=== PATIENT | female | born 1970 | race African-American/Black ===

== ENCOUNTER 2020-01-27 09:54 | Inpatient (IN) | payer OTHER ==
--- NOTE | 2020-01-27 10:08 | BHS.RME ---
Substance Use & Tx History - Substance Use History Methamphetamine Substance amount: 1 gram Frequency of use: Daily Substance route: Inhalation (ex: sniffing or snorting), Smoking Date of Last Use: 01/26/20 (started age 29) Synthetic Cannabinoid Substance amount: K2 - $20 Frequency of use: Daily Substance route: Smoking Date of Last Use: 01/26/20 (started age 45) MDMA Substance amount: 1 gram Frequency of use: Daily Substance route: Oral Date of Last Use: 01/26/20 ( Started age 29) Alcohol Substance amount: 2 beers 16 oz Frequency of use: Less than 3 times per week Substance route: Oral Date of Last Use: 01/26/20 (started age 13) Physical/Psych/Mental Status - Behavior General Behavior: Increased activity (restlessness, agitation) Eye Contact: Normal - Cooperativeness Cooperativeness: Cooperative - Thinking Thought Processes: Tight, Logical, Goal Directed - Physical Health Problems Is patient presently having any pain?: No Does patient presently have any injuries (include location): No Does patient currently have a fever: No Is patient : No
[2020-01-27 14:45] VITALS: BMI 20.5
--- OUTSIDE RECORDS SUMMARY | 2020-01-27 15:13 | XMS ---
:1970 Author Organization [facility] Support Name Relationship Address Phone UE Unavailable Unavailable Unavailable VY IZQUIERDO SISTER [address] [place] [address] Re-disclosure Warning The records that you are about to access may contain information from federally- assisted alcohol or drug abuse programs. If such information is present, then the following federally mandated warning applies: This information has been disclosed to you from records protected by federal confidentiality rules (42 CFR part 2). The federal rules prohibit you from making any further disclosure of this information unless further disclosure is expressly permitted by the written consent of the person to whom it pertains or as otherwise permitted by 42 CFR part 2. A general authorization for the release of medical or other information is NOT sufficient for this purpose. The Federal rules restrict any use of the information to criminally investigate or prosecute any alcohol or drug abuse patient.The records that you are about to access may contain highly sensitive health information, the redisclosure of which is protected by Article 27-F of the [facility] Public Health law. If you continue you may haveaccess to information: Regarding HIV / AIDS; Provided by facilities licensed or operated by the [facility] Office of Mental Health; or Provided by the [facility] Office for People With Developmental Disabilities. If such information is present, then the following [facility] mandated warning applies: This information has been disclosed to you from confidential records which are protected by state law. State law prohibits you from making any further disclosure of this information without the specific written consent of the person to whom it pertains, or as otherwise permitted by law. Any unauthorized further disclosure in violation of state law may result in a fine or fpc sentence or both. A general authorization for the release of medical or other information is NOT sufficient authorization for further disclosure. Insurance Providers Payer name Policy type Policy ID Covered Covered republican's Policy P francisco / Coverage republican ID relationship to [facility] ormation type [employer] [id number] SP [id number]
--- NOTE | 2020-01-27 15:20 | HP ---
CIWA Score - Admission Criteria OASAS Guidelines: Admission for Medically Managed Detox: Requires at least one of the followin. CIWA greater than 12 2. Seizures within the past 24 hours 3. Delirium tremens within the past 24 hours 4. Hallucinations within the past 24 hours 5. Acute intervention needed for co occurring medical disorder 6. Acute intervention needed for co occurring psychiatric disorder 7. Severe withdrawal that cannot be handled at a lower level of care (continued vomiting, continued diarrhea, abnormal vital signs) requiring intravenous medication and/or fluids 8. Admitting History and Physical - Admission History of Present Illness: Pt is a 49 yo F presenting for admission to rehab; "rehab, get my stuff together." Pt reports she was previously at [facility] for detox and completed the detox course yesterday. Pt has never been to [facility] before. Pt reports no seizures or blackouts. Pt reports intermittent periods of sobriety but cannot recall specific periods of time. Pt reports no specific triggers. PMH - HIV+ (CD4 count in 700s; viral load undetectable - per pt; biktarvy); pt taking spirinolactone, estrogen, depo provera for gender transition PSH - none Psych - bipolar disorder/depression (not currently taking any medications) Soc/Domiciled - pt giving conflicting hx (homeless vs apt in [place]) Legal - none - Substance Use History Methamphetamine Substance amount: 1 gram Frequency of use: Daily Substance route: Inhalation (ex: sniffing or snorting), Smoking Date of Last Use: 01/26/20 (started age 29) Synthetic Cannabinoid Substance amount: K2 - $20 Frequency of use: Daily Substance route: Smoking Date of Last Use: 01/26/20 (started age 45) MDMA Substance amount: 1 gram Frequency of use: Daily Substance route: Oral Date of Last Use: 01/26/20 ( Started age 29) Alcohol Substance amount: 2 beers 16 oz Frequency of use: Less than 3 times per week Substance route: Oral Date of Last Use: 01/26/20 (started age 13) History Source: Patient Limitations to Obtaining History: No Limitations - Smoking History Smoking history: Former smoker Have you smoked in the past 12 months: No Admission ROS BHS - HPI Allergies/Adverse Reactions: Allergies Allergy/AdvReac Type Severity Reaction Status Date / Time No Known Allergies Allergy Verified 01/27/20 14:26 - Ebola screening Have you traveled outside of the country in the last 21 days: No Have you been sick,other than usual withdrawal symptoms: No Do you have a fever: No - Review of Systems Constitutional: Changes in sleep (insomnia) EENT: reports: No Symptoms Reported Respiratory: reports: No Symptoms reported Cardiac: reports: No Symptoms Reported GI: reports: No Symptoms Reported : reports: Burning (pt reports ongoing for a few days; urine collected at [place] but does not recall results), Dysuria Musculoskeletal: reports: Back Pain (chronic lower back pain) Integumentary: reports: No Symptoms Reported Neuro: reports: No Symptoms reported Endocrine: reports: No Symptoms Reported, Unexplained Weight Loss Psychiatric: reports: Orientated x3, Agitated (mild), Depressed (chronic; no SI/HI (no SAs previously)) Patient History - Patient Medical History Hx Asthma: No Hx Chronic Obstructive Pulmonary Disease (COPD): No Hx Cardiac Disorders: No Hx Hypertension: No Hx Seizures: No Hx Diabetes: No Hx Gastrointestinal Disorders: No Hx Genitourinary Disorders: No Hx Sexually Transmitted Disorders: Yes (HIV POS) Hx Renal Disease (ESRD): No Hx Depression: Yes Hx Suicide Attempt: No Hx Schizophrenia: No - Patient Surgical History Past Surgical History: No Hx Neurologic Surgery: No Hx Cataract Extraction: No Hx Cardiac Surgery: No Hx Lung Surgery: No Hx Breast Surgery: No Hx Breast Biopsy: No Hx Abdominal Surgery: No Hx Appendectomy: No Hx Cholecystectomy: No Hx Genitourinary Surgery: No Hx Section: No Hx Orthopedic Surgery: No Anesthesia Reaction: No - PPD History Previous Implant?: Yes Documented Results: Negative w/o proof Implanted On Prior [facility] Admission?: No - Smoking Cessation Smoking history: Former smoker Have you smoked in the past 12 months: No Hx Chewing Tobacco Use: No Initiated information on smoking cessation: No Admission Physical Exam BHS - Vital Signs Vital Signs: Vital Signs - 24 hr 01/27/20 01/27/20 14:26 14:43 Temperature 97.6 F 97.6 F Pulse Rate 84 84 Respiratory 18 18 Rate Blood Pressure 126/70 126/70 - Physical General Appearance: Yes: No Apparent Distress, Nourished, Appropriately Dressed HEENTM: Yes: EOMI, Hearing grossly Normal, Normocephalic, Normal Voice Respiratory: Yes: Lungs Clear, Normal Breath Sounds, No Respiratory Distress, No Accessory Muscle Use Neck: Yes: Supple, Trachea in good position Breast: Yes: Breast Exam Deferred Cardiology: Yes: Regular Rhythm, Regular Rate Abdominal: Yes: Normal Bowel Sounds, Non Tender, Flat, Soft Genitourinary: Yes: Other (deferred) Back: Yes: Normal Inspection Musculoskeletal: Yes: full range of Motion, Gait Steady Extremities: Yes: Normal Inspection, Normal Range of Motion, Non-Tender Neurological: Yes: Fully Oriented, Alert, Motor Strength 5/5 Integumentary: Yes: Normal Color, Dry, Warm - Diagnostic (1) Alcohol dependence Current Visit: Yes Status: Acute Qualifiers: Substance use status: uncomplicated Qualified Code(s): F10.20 - Alcohol dependence, uncomplicated (2) Methamphetamine dependence Current Visit: Yes Status: Acute (3) Marijuana dependence Current Visit: Yes Status: Acute (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 Current Visit: Yes Status: Acute Cleared for Admission S - Detox or Rehab S Level of Care: Medically Supervised Claeared for Rehab Admission: Yes Breathalyzer - Breathalyzer Breathalyzer: 0 Urine Drug Screen - Test Device Lot number: [id number] Expiration date: 07/26/21 - Control Is test valid?: Yes - Results Drug screen NEGATIVE: No Urine drug screen results: THC-Marijuana, MET-Methamphetamine, AMP-Amphetamines, MOP-Opiates Inpatient Rehab Admission - Rehab Decision to Admit Inpatient rehab admission?: Yes - Initial Determination Are CD services needed?: No Free of communicable disease: No Not in need of hospitalization: No - Rehab Admission Criteria Previous failed treatment: No Poor recovery environment: No Comorbidities: No Lacks judgement: No Patient is meeting Inpatient Rehab admission criteria:: No
[2020-01-27] MEDS ORDERED: IBUPROFEN 400 MG TABLET (FP) PO PRN (15:37)
[2020-01-27] MEDS ORDERED: P-EPHED 60MG/TRIPROLIDI 2.5MG TABLET PO PRN (15:37)
[2020-01-27] MEDS ORDERED: guaiFENesin 200 MG/10 ML 10 ML UNIT-DOSE CUPS PO PRN (15:37)
[2020-01-27] MEDS ORDERED: LOPERAMIDE HCL 2 MG CAPSULE PO PRN (15:37)
[2020-01-27] MEDS ORDERED: NICOTINE POLACRILEX 2 MG GUM BC PRN (15:37)
[2020-01-27] MEDS ORDERED: MAG HYDROX/AL HYDROX/SIMETH 30 ML UNIT-DOSE CUP PO PRN (15:37)
[2020-01-27] MEDS ORDERED: MAGNESIUM HYDROX 2400MG/30ML ORAL SUSPENSION 30 ML CUP PO PRN (15:37)
[2020-01-27] MEDS ORDERED: MAGNESIUM CITRATE 300 ML BOTTLE PO PRN (15:37)
[2020-01-27] MEDS ORDERED: ACETAMINOPHEN 325 MG TABLET (FP) PO PRN (15:37)
[2020-01-27] MEDS ORDERED: TUBERCULIN PPD 5 TU/0.1ML VIAL ID ONE (16:50)
[2020-01-27] MEDS: hydrOXYzine PAMOATE 25 MG CAPSULE (FP) PO SCH ×2 (17:11→21:52)
[2020-01-27] MEDS ORDERED: PT OWN MED DRAWER 7, Y5N ONE (19:58)
[2020-01-27] MEDS: MELATONIN 5 MG TABLETS PO SCH (21:52)
[2020-01-27] MEDS: THIAMINE HCL 100 MG TABLET (FP) PO SCH (21:52)
[2020-01-28] MEDS: hydrOXYzine PAMOATE 25 MG CAPSULE (FP) PO SCH ×5 (07:29→21:41)
[2020-01-28] MEDS: BICTEGRAV/EMTRICIT/TENOFOV (BIKTARVY) 50-200-25 MG TABLET PO SCH (10:08)
[2020-01-28] MEDS: PRENATAL VITAMINS W/ FOLIC ACID TABLET (FP) PO SCH (10:09)
[2020-01-28] MEDS: SPIRONOLACTONE 25 MG TABLET PO SCH (10:09)
[2020-01-28] MEDS ORDERED: PNEUMOC 13-VAL CONJ-DIP CRM/PF 0.5 ML DISP.SYRIN IM ONE (12:00)
[2020-01-28 12:03] LABS: HEMOGLOBIN 12.9 GM/dL (10.7-15.3); MEAN CELL VOLUME 97.2 fl (80-96); MEAN PLT VOLUME 10.6 fl (7.5-11.1); PLATELET COUNT 250 K/MM3 (134-434); RBC 3.91 M/mm3 (3.60-5.2); RDW 13.5 % (11.6-15.6); WHITE BLOOD COUNT 6.5 K/mm3 (4.0-10.0)
[2020-01-28 12:05] LABS: ALBUMIN 3.7 g/dl (3.4-5.0); BILIRUBIN,TOTAL 0.9 mg/dL (0.2-1); BLOOD UREA NITROGEN 11.8 mg/dL (7-18); CALCIUM 9.2 mg/dL (8.5-10.1); POTASSIUM 4.5 mmol/L (3.5-5.1); TOT PROT 7.7 g/dl (6.4-8.2)
[2020-01-28 13:24] LABS: SICKLE CELL SCREEN NEGATIVE (NEGATIVE)
[2020-01-28 13:26] LABS: URINE APPEARANCE CLOUDY; URINE BILIRUBIN NEGATIVE (NEGATIVE); URINE COLOR YELLOW; URINE GLUCOSE (UA) NEGATIVE (NEGATIVE); URINE KETONE NEGATIVE (NEGATIVE); URINE LEUK ESTERASE NEGATIVE (NEGATIVE); URINE NITRITE NEGATIVE (NEGATIVE); URINE PROTEIN NEGATIVE (NEGATIVE)
[2020-01-28] MEDS: THIAMINE HCL 100 MG TABLET (FP) PO SCH (21:41)
[2020-01-28] MEDS: MELATONIN 5 MG TABLETS PO SCH (21:41)
[2020-01-29] MEDS: hydrOXYzine PAMOATE 25 MG CAPSULE (FP) PO SCH ×5 (06:40→21:38)
--- NOTE | 2020-01-29 07:14 | EKG ---
Test Reason : Blood Pressure : / mmHG Vent. Rate : 068 BPM Atrial Rate : 068 BPM P-R Int : 174 ms QRS Dur : 094 ms QT Int : 420 ms P-R-T Axes : 073 067 057 degrees QTc Int : 446 ms NORMAL SINUS RHYTHM NORMAL ECG NO PREVIOUS ECGS AVAILABLE Confirmed by MIGEL SMITH, KATIUSKA ([id number]) on 01/29/2020 7:13:32 AM Referred By: Confirmed By:KATIUSKA LAINEZ MD
[2020-01-29] MEDS: BICTEGRAV/EMTRICIT/TENOFOV (BIKTARVY) 50-200-25 MG TABLET PO SCH (09:25)
[2020-01-29] MEDS: SPIRONOLACTONE 25 MG TABLET PO SCH (09:26)
[2020-01-29] MEDS: PRENATAL VITAMINS W/ FOLIC ACID TABLET (FP) PO SCH (09:27)
[2020-01-29] MEDS: THIAMINE HCL 100 MG TABLET (FP) PO SCH (21:38)
[2020-01-29] MEDS: MELATONIN 5 MG TABLETS PO SCH (21:39)
[2020-01-30] MEDS: hydrOXYzine PAMOATE 25 MG CAPSULE (FP) PO SCH ×2 (06:57→09:56)
[2020-01-30] MEDS: BICTEGRAV/EMTRICIT/TENOFOV (BIKTARVY) 50-200-25 MG TABLET PO SCH (07:00)
[2020-01-30 07:21] VITALS: TEMP 97.9
[2020-01-30] MEDS: SPIRONOLACTONE 25 MG TABLET PO SCH (09:55)
[2020-01-30] MEDS: PRENATAL VITAMINS W/ FOLIC ACID TABLET (FP) PO SCH (09:55)
[2020-01-30 10:25] VITALS: BP 135/86; PULSE 89
--- NOTE | 2020-01-30 11:05 | PN ---
Teaching Attending Note Name of Resident: Berto Romero ATTENDING PHYSICIAN STATEMENT I saw and evaluated the patient. I reviewed the resident's note and discussed the case with the resident. I agree with the resident's findings and plan as documented. SUBJECTIVE: OBJECTIVE: ASSESSMENT AND PLAN: 1. Alcohol use disorder, s/p recent detox Plan 1. rehab admit
--- NOTE | 2020-01-30 15:46 | DS ---
[facility] Rehab Discharge Summary - [facility] Rehab Discharge Summary Admission Date: 01/27/20 Discharge Date: 01/30/20 - History Present History: Alcohol dependence, Cannabis dependence Pertinent Past History: HIV+ Gender Transition - Discharge Physical Exam Vital Signs: Vital Signs Temperature 97.9 F 01/30/20 07:20 Pulse Rate 89 01/30/20 09:00 Respiratory Rate 18 01/30/20 07:20 Blood Pressure 135/86 01/30/20 09:00 O2 Sat by Pulse Oximetry (%) 98 01/30/20 07:20 General;Transgender slim male, Alert o x 3, nad Cardiac:s1 s2,rrr lungs:ctab abdomen:soft,flat, +bs,nt,nd MSK/Skin:Active FROM, all limbs; oob ambulating with steady gait; no edema, skin intact. Pertinent Admission Physical Exam Findings: Laboratory Tests 01/27/20 01/28/20 01/28/20 10:30 05:55 05:55 WBC 6.5 RBC 3.91 Hgb 12.9 Hct 38.0 MCV 97.2 H MCH 33.0 MCHC 34.0 RDW 13.5 Plt Count 250 MPV 10.6 Sickle Cell Screen Negative Sodium 136 Potassium 4.5 Chloride 104 Carbon Dioxide 27 Anion Gap 6 L BUN 11.8 Creatinine 1.0 Est GFR (CKD-EPI)AfAm 77.69 Est GFR (CKD-EPI)NonAf 67.04 Random Glucose 91 Calcium 9.2 Total Bilirubin 0.9 AST 30 ALT 26 Alkaline Phosphatase 57 Total Protein 7.7 Albumin 3.7 Urine Color Urine Appearance Urine pH Ur Specific [place] Urine Protein Urine Glucose (UA) Urine Ketones Urine Blood Urine Nitrite Urine Bilirubin Urine Urobilinogen Ur Leukocyte Esterase Syphilis Serology SARS-CoV-2 (PCR) Negative 01/28/20 01/28/20 05:55 10:15 WBC RBC Hgb Hct MCV MCH MCHC RDW Plt Count MPV Sickle Cell Screen Sodium Potassium Chloride Carbon Dioxide Anion Gap BUN Creatinine Est GFR (CKD-EPI)AfAm Est GFR (CKD-EPI)NonAf Random Glucose Calcium Total Bilirubin AST ALT Alkaline Phosphatase Total Protein Albumin Urine Color Yellow Urine Appearance Cloudy Urine pH 5.0 Ur Specific [place] 1.025 Urine Protein Negative Urine Glucose (UA) Negative Urine Ketones Negative Urine Blood Negative Urine Nitrite Negative Urine Bilirubin Negative Urine Urobilinogen 1.0 Ur Leukocyte Esterase Negative Syphilis Serology Non-reactive SARS-CoV-2 (PCR) - Treatment Discharge Condition: Discharge condition good, Outpatient referral accepted Hospital Course: pt is a 49 y/o transgender male admitted to rehab on 01/27/20 and requesting early discharge today. Pt states-"I'm just ready to go. I have bussiness to take care of". Pt reports primary care with Dr. Zeina Rg at [place], [place] and has appointment on 02/02/20. reports she has own meds. CD aftercare referral accepted to - Medication Discharge Medications: Ambulatory Orders Bictegrav/Emtricit/Tenofov Ala [Biktarvy 50-200-25 mg Tablet] 1 each PO DAILY 01/27/20 Spironolactone [Aldactone] 200 mg PO DAILY 01/27/20 - Medication-Assisted Treatment (MAT) Medication-Assisted Treatment (MAT): No - Discharge Instructions Diet, activity, other medical instructions: Diet:Regular Activity:oob ad abena Other medical instructions:follow up with CD aftercare and medical management as recommended. 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
== END 2020-01-30 09:12 | disposition home or self-care (01) | DRG 772 ==
LOC: YASAS 09:54 → Y3E 15:09
PROVIDERS: ADMIT Allergy & Immunology; ATTEND Allergy & Immunology
PROC: HZ42ZZZ Group Counseling for Substance Abuse Treatment, Cognitive-Behavioral (ICD-10-PCS; principal; 2020-01-27)
DX: F10.20 Alcohol dependence, uncomplicated (principal); F15.20 Other stimulant dependence, uncomplicated; F16.20 Hallucinogen dependence, uncomplicated; F12.20 Cannabis dependence, uncomplicated; F19.20 Other psychoactive substance dependence, uncomplicated; F31.9 Bipolar disorder, unspecified; F64.0 Transsexualism; Z21 Asymptomatic human immunodeficiency virus [HIV] infection status
CPT/HCPCS: 36415; 80053; 81003; 85027; 85660; 86780; 87086; 90670; 93005; 93010; C9803; U0003